=== PATIENT | female | born 2000 ===

== ENCOUNTER 2018-05-19 19:36 | Emergency (ER) | payer BC ==
[2018-05-19 19:49] VITALS: BP 132/90
--- NOTE | 2018-05-19 20:10 | UC ---
Lower Extremity/Ankle HPI - HPI Summary HPI Summary: 17 yo female presents with RIGHT ankle pain. She was playing soccer this evening when she twisted her ankle and landed on it. She states she heard a crack/pop. She had a stress fx in this foot around this time last year. She is able to bear weight, but has significant pain. Denies numbness or tingling. - History of Current Complaint Chief Complaint: UCLowerExtremity Stated Complaint: FOOT INJURY Time Seen by Provider: 05/19/18 20:09 Hx Obtained From: Patient Hx Last Menstrual Period: 05/01/18 Onset/Duration: Sudden Onset Severity Initially: Moderate Severity Currently: Moderate Pain Intensity: 6 Pain Scale Used: 0-10 Numeric Aggravating Factor(s): Standing, Ambulation Alleviating Factor(s): Rest, Elevation Able to Bear Weight: Yes - Allergies/Home Medications Allergies/Adverse Reactions: Allergies Allergy/AdvReac Type Severity Reaction Status Date / Time No Known Allergies Allergy Verified 05/19/18 19:50 Home Medications: Home Medications NK [No Home Medications Reported] 05/19/18 [History Confirmed 05/19/18] PMH/Surg Hx/FS Hx/Imm Hx - Additional Past Medical History Additional PMH: None - Surgical History Surgical History: None - Family History Known Family History: Positive: None - Social History Occupation: Student Lives: Dormitory/Roommates Alcohol Use: Rare Substance Use Type: None Smoking Status (MU): Never Smoked Tobacco Review of Systems Constitutional: Negative Skin: Negative Respiratory: Negative Cardiovascular: Negative Neurovascular: Negative Musculoskeletal: Other: - Right ankle pain Neurological: Negative Psychological: Negative All Other Systems Reviewed And Are Negative: Yes Physical Exam - Summary Physical Exam Summary: GENERAL: NAD. WDWN. No pain distress. SKIN: No rashes, sores, lesions, or open wounds. CHEST: No accessory muscle use. Breathing comfortably and in no distress. CV: Pulses intact PT and DP. Cap refill <2seconds MSK: RIGHT ANKLE: Mild TTP over lateral high ankle without point tenderness. FROM. Strength 5/5. No edema or obvious bony deformities. Negative talar tilt. No increased laxity. Negative [place] test. NEURO: Alert. Sensations intact and symmetric B/L LEs PSYCH: Age appropriate behavior. Triage Information Reviewed: Yes Vital Signs: Initial Vital Signs Temp 97.8 F 05/19/18 19:42 Pulse 77 09/19/18 19:42 Resp 16 05/19/18 19:42 BP 132/90 05/19/18 19:42 Pulse Ox 100 05/19/18 19:42 Vital Signs Reviewed: Yes Lower Extremity Course/Dx - Course Course Of Treatment: XR: No radiologist read after 1800, therefore wet read by me is Negative for fx. Pt already has crutches and a CAM boot. Advised to use this and f/u with Sports Medicine if her symptoms persist. - Differential Dx/Diagnosis Provider Diagnoses: Right ankle sprain Discharge - Sign-Out/Discharge Documenting (check all that apply): Patient Departure All imaging exams completed and their final reports reviewed: No - Discharge Plan Condition: Stable Disposition: HOME Patient Education Materials: Ankle Sprain (DC) Referrals: No Primary Care Phys,NOPCP [Primary Care Provider] - [facility] [Provider Group] Additional Instructions: If you develop a fever, shortness of breath, chest pain, new or worsening symptoms - please call your PCP or go to the ED. 1) Rest, Ice, and elevate your ankle as much as possible 2) Use the walking boot and crutches as needed 3) Please follow up with Sports Medicine if your symptoms do not improve - Billing Disposition and Condition Condition: STABLE Disposition: Home
--- NOTE | 2018-05-20 08:04 | RAD ---
Indication: Right ankle pain. 3 views of the right ankle demonstrates ankle mortise intact. There is no fracture or dislocation. No other bone or joint abnormality is identified. IMPRESSION: No fracture of the right ankle is noted. R0
--- NOTE | 2018-05-20 10:36 | UC ---
- Progress Note Progress Note: Xr read: IMPRESSION: No fracture of the right ankle is noted. No change in plan Discharge - Sign-Out/Discharge Documenting (check all that apply): Post-Discharge Follow Up All imaging exams completed and their final reports reviewed: Yes - Discharge Plan Condition: Stable Disposition: HOME Patient Education Materials: Ankle Sprain (DC) Referrals: [facility] [Provider Group] No Primary Care Phys,NOPCP [Primary Care Provider] - Additional Instructions: If you develop a fever, shortness of breath, chest pain, new or worsening symptoms - please call your PCP or go to the ED. 1) Rest, Ice, and elevate your ankle as much as possible 2) Use the walking boot and crutches as needed 3) Please follow up with Sports Medicine if your symptoms do not improve - Billing Disposition and Condition Condition: STABLE Disposition: Home
== END 2018-05-19 20:23 | disposition home or self-care (01) ==
LOC: UCEAST 19:36
DX: S93.401A Sprain of unspecified ligament of right ankle, initial encounter (principal); X50.1XXA Overexertion from prolonged static or awkward postures, initial encounter; Y93.66 Activity, soccer; Y92.322 Soccer field as the place of occurrence of the external cause
CPT/HCPCS: 99211; G0463